=== PATIENT | male | born 1995 ===

== ENCOUNTER 2017-01-24 01:26 | Emergency (ER) | payer SELFPAY ==
[2017-01-24 01:48] VITALS: RESP 18; TEMP 98.2; O2SAT 98
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
[2017-01-24 04:53] LABS: URINE BILIRUBIN NEGATIVE (NEGATIVE); URINE BLOOD MODERATE (NEGATIVE); URINE GLUCOSE (UA) NEGATIVE (NEGATIVE); URINE KETONE NEGATIVE (NEGATIVE); URINE LEUKOCYTE ESTERASE NEGATIVE Leu/uL (NEGATIVE); URINE PROTEIN 30 mg/dL (<30 mg/dL); URINE UROBILINOGEN 0.2 E.U./dL (<1 E.U./dL)
[2017-01-24 05:10] LABS: URINE APPEARANCE SL CLOUDY (CLEAR); URINE COLOR YELLOW (YELLOW)
[2017-01-24 05:11] LABS: URINE BACTERIA RARE (NEG); URINE EPITHELIAL CELLS 0 - 2 /hpf (0-5)
[2017-01-24 06:34] VITALS: BP 121/74; PULSE 97
--- NOTE | 2017-01-24 09:09 | RAD ---
HISTORY: fall COMPARISON: No prior. FINDINGS: BONES: Alignment maintained. No fracture. DISC SPACES: Normal. SOFT TISSUES: Normal. OTHER FINDINGS: None. IMPRESSION: Normal radiographs of the thoracic spine.
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
== END 2017-01-24 06:30 | disposition home or self-care (01) ==
LOC: ED 01:26
DX: M54.9 Dorsalgia, unspecified (principal)
CPT/HCPCS: 72070; 72110; 73080; 73130; 81001; 96372; 99283; J1885